=== PATIENT | male | born 1985 | race Caucasian/White ===

== ENCOUNTER 2019-12-02 15:38 | Emergency (ER) | payer MEDICAID ==
[~2019-12-02] VITALS: Ht 188 cm; Wt 94.3 kg
[2019-12-02 15:55] VITALS: Ht 188 cm; Wt 94.3 kg
[2019-12-02 19:00] VITALS: BP 145/87
== END 2019-12-02 19:00 | disposition home or self-care (01) ==
LOC: ED 15:38
DX: M54.9 Dorsalgia, unspecified (principal); R10.9 Unspecified abdominal pain